=== PATIENT | male | born 1960 | race Caucasian/White ===

== ENCOUNTER 2017-11-04 18:24 | Emergency (ER) | payer OTHER ==
--- NOTE | 2017-11-04 19:05 | ED Physician Chart ---
ED Chief Complaint/HPI - Patient Information Date Seen:: 11/04/17 Time Seen:: 18:31 Chief Complaint:: right sided headache History of Present Illness:: right sided headache. relieved somewhat with over the counter tylenol. he has had no nausea or vomiting. also, today, when he went from a dark store to outside where it was bright, it took a few minutes for his vision to equilibrate. he wanted to get checked out today since his friend had a brain hemorrhage with vomiting. Allergies:: Allergies Allergy/AdvReac Type Severity Reaction Status Date / Time No Known Allergies Allergy Verified 11/04/17 18:29 Vitals:: Vital Signs - 8 hr 11/04/17 18:31 Temp 97.8 F HR 70 RR 19 BP 153/95 O2 Sat % 99 Historian:: Patient, Family Member Review:: Nurse's Note Reviewed ED Review of Systems - Review of Systems General/Constitutional: No fever, No chills, No weight loss, No weakness, No diaphoresis, No edema, No loss of appetite Skin: No skin lesions, No rash, No bruising Head: Headache, No light-headedness Eyes: No loss of vision, No pain, No diplopia ENT: No earache, No nasal drainage, No sore throat, No tinnitus Neck: No neck pain, No swelling, No thyromegaly, No stiffness, No mass noted Cardio Vascular: No chest pain, No palpitations, No PND, No orthopnea, No edema Pulmonary: No SOB, No cough, No sputum, No wheezing GI: No nausea, No vomiting, No diarrhea, No pain, No melena, No hematochezia, No constipation, No hematemesis G/U: No dysuria, No frequency, No hematuria Musculoskeletal: No bone or joint pain, No back pain, No muscle pain Endocrine: No polyuria, No polydipsia Psychiatric: No prior psych history, No depression, No anxiety, No suicidal ideation Hematopoietic: No bruising, No lymphadenopathy Allergic/Immuno: No urticaria, No angioedema Neurological: No syncope, No focal symptoms, No weakness, No paresthesia, No headache, No seizure, No dizziness, No confusion, No vertigo ED Past Medical History - Past Medical History Obtainable: Yes Past Medical History: No significant medical hx ED Physical Exam - Physical Examination General/Constitutional: Awake, Well-developed, well-nourished, Alert, No distress, GCS 15, Non-toxic appearing, Ambulatory Head: Atraumatic Eyes: Lids, conjuctiva normal, PERRL, EOMI Skin: Nl inspection, No rash, No skin lesions, No ecchymosis, Well hydrated, No lymphadenopathy ENMT: External ears, nose nl, Nasal exam nl, Lips, teeth, gums nl Other ENMT comments:: pain with placement of my fingers in both ears (more pain on the right than on the left). pain directly over the right TMJ more than over the left TMJ. edentulous in the back with smooth molars (from intermediate manager grinding). Neck: Nontender, Full ROM w/o pain, No JVD, No nuchal rigidity, No bruit, No mass, No stridor Respiratory: Nl effort/Exclusion, Clear to Auscultation, No Wheeze/Rhonchi/Rales Cardio Vascular: RRR, No murmur, gallop, rubs, NL S1 S2 Extremities: No tenderness or effusion, Full ROM, normal strength in all extremities, No edema, Normal digits & nails Neuro/Psych: Alert/oriented, Normal sensory exam, Normal motor strength, Judgement/insight normal, Mood normal, Normal gait, No focal deficits ED Assessment - Assessment General Assessment: patient's visual acuity 20/20 bilaterally without correction. Assessment/Comments:: patient refuses the toradol and solumedrol shots. states that he will take motrin when he gets home. ED Septic Shock - . Is Septic Shock (SBP<90, OR Lactate>4 mmol\L) present?: No - <6hrs of presentation: Vital Signs: Vital Signs - 8 hr 11/04/17 18:31 Temp 97.8 F HR 70 RR 19 BP 153/95 O2 Sat % 99 ED Reassessment (Disposition) - Reassessment Reassessment Condition:: Improved - Aftercare/Follow up Instructions Aftercare/Follow-Up Instructions:: Refer to Discharge Instructions Medication Prescribed:: Motrin 800 mg po tid prn. Follow up with dentist for a mouth guard. Follow up with the primary care physician. For the next week, only eat food that is soft and that doesn't need to be chewed. - Patient Disposition Discharge/Transfer:: Home Condition at Disposition:: Stable, Improved
== END 2017-11-04 20:25 | disposition home or self-care (01) ==
LOC: ER 18:24
DX: R51 Headache (principal); M26.603 Bilateral temporomandibular joint disorder, unspecified